=== PATIENT | female | born 1995 | race Caucasian/White ===

== ENCOUNTER 2019-09-15 05:30 | Inpatient (IN) ==
[2019-09-15] MEDS ORDERED: Metoclopramide 10 MG/2 ML VIAL IVP PRN (05:38)
[2019-09-15] MEDS ORDERED: Famotidine 20 MG/2 ML VIAL IVP PRN (05:38)
[2019-09-15] MEDS ORDERED: Naloxone 0.4 MG/ML INJ IVP PRN (05:38)
[2019-09-15] MEDS ORDERED: Lidocaine 1% 20 ML MDV ID PRN (05:38)
[2019-09-15] MEDS ORDERED: miSOPROStoL 25 MCG TABLET VG PRN (05:41)
[2019-09-15] MEDS ORDERED: Penicillin G Potassium 5,000,000 UNIT in 0.9 % Sodium Chloride Mini Bag 100 ML IVPB ONE (05:47)
[2019-09-15] MEDS: Ringers Solution, Lactated 1,000 ML IVC SCH ×4 (06:05→22:34)
[2019-09-15 06:06] LABS: Basophils # 0.1 K/mcL (0.0-0.2); Basophils % 0.4 %; Hematocrit 38.3 % (35.3-44.9); Hemoglobin 12.7 g/dL (11.5-15.4); Immature Granulocytes % 0.9 % (0-4); Lymphocytes # 3.5 K/mcL (0.6-4.6); Lymphocytes % 23.9 %; Mean Corpuscular HGB Conc 33.2 g/dL (31.6-35.5); Mean Corpuscular Hemoglobin 29.6 pg (28.0-33.3); Mean Corpuscular Volume 89.3 fL (83.0-100.0); Mean Platelet Volume 11.4 fL (9.4-12.4); Monocytes # 1.2 K/mcL (0.0-1.3); Monocytes % 8.3 %; Neutrophils # 9.8 K/mcL (1.6-8.9); Platelet Count 302 K/mcL (140-400); Red Blood Count 4.29 M/mcL (3.82-4.97); Red Cell Distribution Width 13.1 % (11.5-14.5); Segmented Neutrophils % 66.5 %; White Blood Count 14.7 K/mcL (4.3-11.1)
[2019-09-15 06:17] LABS: Amphetamine Screen,Urine Negative ng/mL (Cutoff=1000); Barbiturate Screen,Urine Negative ng/mL (Cutoff=200); Benzodiazepines Screen,Urine Negative ng/mL (Cutoff=200); Cannabinoid Screen,Urine Negative ng/mL (Cutoff = 50); Cocaine Screen,Urine Negative ng/mL (Cutoff= 300); Opiate Screen,Urine Negative ng/mL (Cutoff=300); Phencyclidine Screen,Urine Negative ng/mL (Cutoff=25)
[2019-09-15] MEDS: Penicillin G Potassium 2,500,000 UNIT in 0.9 % Sodium Chloride 100 ML IVPB SCH ×4 (10:18→23:32)
[2019-09-15] MEDS: Oxytocin 20 units/ LR 1000 mL 20 UNIT/1,000 ML BAG IVC SCH (10:19)
[2019-09-15] MEDS ORDERED: EPHEDrine 50 MG/ML VIAL IVP PRN (11:04)
[2019-09-15] MEDS ORDERED: *HR* FentaNYL (PF) 100 MCG/2 ML VIAL ONE (11:08)
[2019-09-15] MEDS ORDERED: Bupivacaine-MPF 0.25% 10 ML VIAL ONE (11:08)
[2019-09-15] MEDS ORDERED: Epidural Premix (fent/bupiv) 110 ML EP ONE (11:09)
[2019-09-15] MEDS: Epidural Premix (fent/bupiv) 110 ML EP SCH ×2 (11:49→18:57)
[2019-09-15] MEDS ORDERED: Ropivacaine/PF 0.2% 20 ML VIAL ONE (22:39)
[2019-09-15] MEDS ORDERED: D5% in 0.45% NACL 1,000 ML IVC SCH (22:45)
[2019-09-15] MEDS ORDERED: *HR* Buprenorphine HCl 8 MG TAB.SUBL SL SCH (23:00)
[2019-09-16] MEDS: Epidural Premix (fent/bupiv) 110 ML EP SCH ×2 (02:00→07:26)
[2019-09-16] MEDS: Penicillin G Potassium 2,500,000 UNIT in 0.9 % Sodium Chloride 100 ML IVPB SCH ×2 (03:31→08:01)
[2019-09-16] MEDS ORDERED: Ropivacaine/PF 0.2% 20 ML VIAL ONE (08:41)
[2019-09-16] MEDS: Oxytocin 20 units/ LR 1000 mL 20 UNIT/1,000 ML BAG IVC SCH (11:52)
[2019-09-16] MEDS ORDERED: Measles/Mumps/Rubella Vacc 0.5 ML VIAL SQ PRN (13:40)
[2019-09-16] MEDS ORDERED: Oxytocin 20 units/ LR 1000 mL 20 UNIT/1,000 ML BAG IVC SCH (13:40)
[2019-09-16] MEDS ORDERED: Acetaminophen 325 MG TABLET PO PRN (13:40)
[2019-09-16] MEDS: Ibuprofen 600 MG TABLET PO PRN (13:48)
[2019-09-16] MEDS ORDERED: BUPRENORPHINE HCL 8 MG SL SCH (21:00)
[2019-09-16] MEDS: *HR* Buprenorphine HCl 8 MG TAB.SUBL SL SCH (21:05)
[2019-09-17] MEDS: Ibuprofen 600 MG TABLET PO PRN ×2 (04:31→16:44)
[2019-09-17 05:15] LABS: Basophils # 0.1 K/mcL (0.0-0.2); Basophils % 0.4 %; Hematocrit 37.6 % (35.3-44.9); Hemoglobin 11.9 g/dL (11.5-15.4); Immature Granulocytes % 0.5 % (0-4); Lymphocytes # 3.7 K/mcL (0.6-4.6); Lymphocytes % 19.1 %; Mean Corpuscular HGB Conc 31.6 g/dL (31.6-35.5); Mean Corpuscular Hemoglobin 28.9 pg (28.0-33.3); Mean Corpuscular Volume 91.3 fL (83.0-100.0); Mean Platelet Volume 11.7 fL (9.4-12.4); Monocytes # 1.3 K/mcL (0.0-1.3); Monocytes % 6.6 %; Neutrophils # 14.1 K/mcL (1.6-8.9); Platelet Count 287 K/mcL (140-400); Red Blood Count 4.12 M/mcL (3.82-4.97); Red Cell Distribution Width 13.2 % (11.5-14.5); Segmented Neutrophils % 73.4 %; White Blood Count 19.2 K/mcL (4.3-11.1)
[2019-09-17] MEDS: Prenatal Vit/FA 1 EACH TABLET PO SCH (08:42)
[2019-09-17] MEDS: *HR* Buprenorphine HCl 8 MG TAB.SUBL SL SCH ×2 (08:42→20:46)
[2019-09-18 08:00] VITALS: BP 102/68
[2019-09-18] MEDS: Prenatal Vit/FA 1 EACH TABLET PO SCH (09:35)
[2019-09-18] MEDS: *HR* Buprenorphine HCl 8 MG TAB.SUBL SL SCH (09:35)
[2019-09-18] MEDS: Ibuprofen 600 MG TABLET PO PRN (09:38)
== END 2019-09-18 11:00 | disposition home or self-care (01) | DRG 806 ==
LOC: 1NENULAB 05:30 → 1NENUOBS 09-16 13:37
PROVIDERS: ADMIT Obstetrics & Gynecology; ATTEND Obstetrics & Gynecology